=== PATIENT | female | born 1975 | race Two or more races ===

== ENCOUNTER → 2018-12-26 | Emergency (ER) | payer OTHER ==
[~2018-12-26] VITALS: Ht 165.1 cm; Wt 77.1 kg
== END | disposition home or self-care (01) ==
LOC: ER 20:42
DX: S61.221A Laceration with foreign body of left index finger without damage to nail, initial encounter (principal); S61.223A Laceration with foreign body of left middle finger without damage to nail, initial encounter; W26.0XXA Contact with knife, initial encounter; Y93.89 Activity, other specified; Y92.091 Bathroom in other non-institutional residence as the place of occurrence of the external cause; Y99.8 Other external cause status

== ENCOUNTER 2019-01-03 07:45 | Emergency (ER) | payer OTHER ==
[~2019-01-03] VITALS: Ht 160 cm; Wt 104.3 kg
== END 2019-01-03 09:58 | disposition home or self-care (01) ==
LOC: ER 07:45
DX: Z48.02 Encounter for removal of sutures (principal)